=== PATIENT | male | born 1960 | race Caucasian/White ===

== ENCOUNTER → 2023-06-12 | Outpatient (CLI) | payer OTHER ==
--- NOTE | 2023-06-12 10:39 | CA ---
Exercise Stress Test Report Name: Vinod Silva Exam Date: 06/12/2023 08:49 Exam Location: [place] Stress Ht (in): 74 Wt (lb): 199 BSA: 2.17 Ordering Phys: Melchor Horn MD Referring Phys: MELCHOR HORN Technologist: ROSA ALVARADO Age: 62 Gender: M : 1960 Procedure CPT: Indications: R07.9 CHEST PAIN ICD-10 Codes: Patient History: CP, DM, FAMILY HX Medications: UNSURE OF NAMES AND DID NOT BRING LIST (DID'T TAKE ANYTHING THE PAST 24 HOURS) Meds past 24 hrs: Pretest Chest Pain: STRESS TEST Ignacio Protocol Exercise Duration (min:sec): 06:[address] Depressions (mm): Angina Score: Patel Score: Resting HR (bpm): 102 Peak HR (bpm): 135 Resting BP (mmHg): 96 / 64 Peak BP (mmHg): 164 / 62 MPHR: 157 Target HR: 133 % MPHR: 86 METS: 7.1 Total Dose: Peak Dose: Atropine: Double Product: 84496 BP Response: Stress Termination: Reached target heart rate Stress Symptoms: No chest pain or symptoms Stress Summary: ECG ANALYSIS Resting ECG: Normal sinus rhythm normal axis normal at the Stress ECG: Patient exercised on Ignacio protocol for 6 minutes achieving 85% of predicted maximal heart rate without chest pain or diagnostic ST segment depression CONCLUSIONS Average exercise tolerance Negative stress test by EKG criteria Dr. Emanuel Natarajan MD (Electronically Signed) Final Date: 12 June 2023 10:38
== END | disposition home or self-care (01) ==
LOC: RADNMMAIN 08:24
PROVIDERS: ATTEND Family Medicine
DX: R07.9 Chest pain, unspecified (principal)
CPT/HCPCS: 93017

== ENCOUNTER 2023-07-01 09:06 | Inpatient (IN) | payer OTHER ==
[2023-07-01] MEDS: ASPIRIN 81 MG ONE (10:57)
[2023-07-01] MEDS: SODIUM CHLORIDE 0.9% 1,000 ML IV ONE (10:59)
[2023-07-01] MEDS ORDERED: LIDOCAINE 1% INJ 10MG/ML (20 ML MDV) ONE (11:22)
[2023-07-01] MEDS ORDERED: VERAPAMIL 2.5 MG/ML 2 ML AMP ONE (11:22)
[2023-07-01] MEDS ORDERED: fentaNYL (PF) 50 MCG/ML 2 ML AMP ONE (11:33)
[2023-07-01] MEDS ORDERED: HEPARIN SODIUM 1,000 UN/ML (10ML VL) ONE (11:33)
[2023-07-01] MEDS: fentaNYL (PF) 50 MCG/ML 2 ML AMP IVP ONE (11:42)
[2023-07-01] MEDS: MIDAZOLAM 2 MG/2 ML VIAL IVP ONE (11:42)
[2023-07-01] MEDS: VERAPAMIL SYRINGE (5 MG/10 ML) INTRAARTER ONE (11:47)
[2023-07-01] MEDS: HEPARIN SODIUM 1,000 UN/ML (10ML VL) IVP ONE ×3 (11:49→12:09)
[2023-07-01] MEDS ORDERED: TICAGRELOR 90 MG TAB ONE (11:52)
[2023-07-01] MEDS: TICAGRELOR 90 MG TAB PO ONE (11:56)
[2023-07-01] MEDS: IOPAMIDOL-370 100ML BTL INJ ONE ×2 (12:12→12:15)
[2023-07-01] MEDS ORDERED: ZOLPIDEM 5 MG TAB PO PRN (12:20)
[2023-07-01] MEDS ORDERED: MAG HYDROX/AL HYDROX/SIMETH 30 ML CUP PO PRN (12:20)
[2023-07-01] MEDS ORDERED: ATROPINE SULFATE 0.1 MG/ML 10ML SYRINGE IV PRN (12:20)
[2023-07-01] MEDS ORDERED: RX INFO: IV CONTRAST WAS GIVEN 1 EACH MISC MISCELLANE PRN (12:20)
[2023-07-01] MEDS ORDERED: NITROGLYCERIN SL TABS 0.4 MG TAB SUBLINGUAL PRN ×2 (12:20→16:00)
--- NOTE | 2023-07-01 12:34 | P.PRCINT ---
Percutaneous Coronary Int. - Percutaneous Coronary Intervention Percutaneous Coronary Intervention: PROCEDURES PERFORMED: Left heart catheterization, bilateral coronary angiography, ultrasound guided arterial access, PCI mid RCA with a 3.25 x 23mm Xience FREDDIE, post dilated with a 3.75 NC balloon. INDICATION: non-STEMI CONSENT:I have discussed the risks, benefits and alternative therapies for the above-mentioned procedure and for both sedation/analgesia as well as necessary blood product administration, if indicated, as they pertain to this patient. The patient has indicated understanding and acceptance of the risks and procedures discussed. PROCEDURE: After the risks, benefits and alternatives of the above mentioned procedure explained in detail with the patient, informed consent was obtained. Patient was taken to the catheterization lab and prepped and draped in usual fashion. Ultrasound guidance was used to assess for arterial access. 1% lidocaine was used to anesthetize the right radial artery. A 6-Danish sheath was placed in the right radial artery using modified Seldinger technique and ult rasound guidance. Left coronary angiography was performed with a 5-Danish JL 3.5 catheter and right coronary angiography was performed with a 5-Danish FR5 catheter in various views. A 5-Danish FR5 catheter was inserted into the left ventricle and pressure measurements were obtained. decision was made to perform PCI of the RCA. Heparin was given. A 6-Danish AL 0.75 guide was used to engage the RCA. A0.014 BMW wire was advanced to the distal RCA. Predilation was performed with a 2.5 balloon. Next a 3.25 x 18 mm stent was advanced however was too short. Therefore next a 3.25 x 23 mm Xience FREDDIE was advanced and deployed in the mid RCA. This that was postdilated with a 3.75 noncompliant balloon. Final angiograms were performed. Preintervention there is 95% stenosis and ARNIE-3 flow and postintervention there was 0% stenosis and ARNIE-3 flow. The right radial sheath was removed and a TR band was placed with hemostasis achieved. The patient tolerated the procedure well. Patient was transported back to the post catheterization holding area in stable condition. Conscious Sedation: Patient was monitored under the direct supervision of myself for conscious sedation using Versed and fentanyl for a total duration of 34 minutes HEMODYNAMICS: Aorta: 128/72 LV: 124/5, LVEDP 12 SELECTIVE CORONARY ARTERIOGRAPHY: LEFT MAIN: The left main is a large caliber vessel which bifurcates into the LAD and circumflex. There is no significant stenosis. LEFT ANTERIOR DESCENDING CORONARY ARTERY: LAD is a large caliber vessel which wraps around to the apex. There is proximal LAD 10% and mid LAD 30% stenosis. LEFT CIRCUMFLEX CORONARY ARTERY: Left circumflex is a moderate caliber vessel with mild luminal irregularities. RIGHT CORONARY ARTERY: The right coronary artery is a large caliber vessel which gives off a PDA and PLV branch and is the dominant vessel. There is a mid RCA 95% followed by a 30-40% stenosis. FINAL IMPRESSION: 1. CAD as described above including 30% mid LAD, 95% mid RCA stenosis 2. Normal left sided filling pressures 3. Status post PCI mid RCA with a 3.25 x 23mm Xience FREDDIE, post dilated with a 3.75 NC balloon. PLAN: 1. Aggressive risk factor modification per most recent ACC/AHA guidelines. 2. Continued dual anti platelets were aspirin and Brilinta for 12 months
[2023-07-01 12:44] LABS: Glucose,Whole Blood 75 mg/dL (70-110)
[2023-07-01 16:22] LABS: Glucose,Whole Blood 89 mg/dL (70-110)
[2023-07-01] MEDS: SODIUM CHLORIDE 0.9% 1,000 ML in EMPTY BAG 1 BAG IV SCH (17:23)
[2023-07-01 19:59] LABS: Glucose,Whole Blood 120 mg/dL (70-110)
[2023-07-01] MEDS: TICAGRELOR 90 MG TAB PO SCH (20:19)
[2023-07-01] MEDS ORDERED: ATORVASTATIN 40 MG TAB PO SCH (21:00)
[2023-07-01 22:40] VITALS: TEMP 98.1
[2023-07-02 05:18] VITALS: RESP 20
[2023-07-02 06:11] LABS: Glucose,Whole Blood 107 mg/dL (70-110)
[2023-07-02 08:04] LABS: Basophils % (A) 1 %; Eosinophils # (A) 0.1 k/uL (0-0.7); Eosinophils % (A) 2 %; HCT 39.1 % (39.0-53.0); HGB 13.4 gm/dL (13.0-17.5); Lymphocytes % (A) 19 %; MCH 31.3 pg (25.0-35.0); MCHC 34.3 g/dL (31.0-37.0); MCV 91.2 fL (80.0-100.0); Mean Platelet Volume 7.4; Monocytes # (A) 0.4 k/uL (0-1.0); Monocytes % (A) 8 %; Neutrophils # (A) 3.8 k/uL (1.3-7.7); Neutrophils % (A) 69 %; Platelet Count 215 k/uL (150-450); RBC 4.29 m/uL (4.30-5.90); RDW 12.8 % (11.5-15.5); WBC 5.5 k/uL (3.8-10.6)
[2023-07-02 08:22] LABS: African American GFR (CKD) >90 (>60 ml/min/1.73 sqM); Anion Gap 5 mmol/L; Blood Urea Nitrogen 11 mg/dL (9-20); Calcium 8.7 mg/dL (8.4-10.2); Carbon Dioxide 26 mmol/L (22-30); Chloride 107 mmol/L (98-107); Glucose 110 mg/dL (74-99); Non-African American GFR(CKD) 87 (>60 ml/min/1.73 sqM); Potassium 4.1 mmol/L (3.5-5.1); Sodium 138 mmol/L (137-145)
[2023-07-02] MEDS: lisinopriL 20 MG TAB PO SCH (08:57)
[2023-07-02] MEDS: ATORVASTATIN 80 MG TAB PO SCH (08:57)
[2023-07-02] MEDS: GLIMEPIRIDE 2 MG TAB PO SCH (08:58)
[2023-07-02] MEDS: ASPIRIN 81 MG PO SCH (08:58)
[2023-07-02] MEDS ORDERED: ASPIRIN 81 MG PO SCH (09:00)
[2023-07-02 11:40] LABS: Glucose,Whole Blood 88 mg/dL (70-110)
[2023-07-02 12:55] VITALS: BP 127/78; PULSE 90
[2023-07-02 13:40] VITALS: BMI 25.4
[2023-07-02] MEDS: METOPROLOL SUCCINATE (ER) 25 MG TAB.ER.24H PO SCH (16:00)
--- NOTE | 2023-07-02 16:01 | P.PN ---
Subjective Progress Note Date: 07/02/23 History of present illness: This is a 62-year-old male patient initially presented to [facility] with chest pain was concerning for ST elevated myocardial infarction was sent directly over to [facility] and determined to be a non-ST elevated MS. Patient underwent a cardiac catheterization with Dr. Pacheco urgently which revealed CAD with 30% mid LAD, 95% mid RCA stenosis. Normal left-sided filling pressures. Patient underwent PCI of the mid RCA with a FREDDIE post balloon. Patient is seen today on the cardiac stepdown unit. He denies having any chest pain, shortness of breath, lightheadedness and dizziness. Blood pressure 127/78, heart rate 90, pulse ox 100% on room air. Hemoglobin 13.4. BUN 11 creatinine 0.93. Physical examination: Gen: This is a 62-year-old male appears to be in no acute distress VS: reviewed HEENT: Head is atraumatic, normocephalic. Pupils equal, round. Sclerae is anicteric. LUNGS: Clear to auscultation. No wheezes or rhonchi. No intercostal retractions. HEART: Regular rate and rhythm. EXTREMITIES: No pedal edema. No calf tenderness. NEUROLOGICAL: Patient is awake, alert and oriented x3. Assessment: Non-ST elevated myocardial infarction Diabetes mellitus type 2 Hypertension Hyperlipidemia Plan: Continue current cardiac medications: Aspirin 81 mg daily, atorvastatin 80 mg daily, lisinopril 20 mg daily, Toprol XL 25 mg daily, Brilinta 90 mg twice daily and Nitrostat as needed Prescriptions have been sent for his new cardiac medications Patient is cleared for discharge and may follow-up in the office in 1 week. Nurse practitioner note has been reviewed, I agree with documented findings and plan of care. Patient was seen and examined. Objective - Vital Signs Vital signs: Vital Signs Temp 98.1 F 07/01/23 20:00 Pulse 90 07/02/23 12:00 Resp 20 07/02/23 12:00 BP 127/78 07/02/23 12:00 Pulse Ox 100 07/02/23 12:00 FiO2 Intake & Output 07/01/23 07/02/23 07/02/23 18:59 06:59 18:59 Intake Total 518 240 Balance 518 240 Weight 89.811 kg 89.811 kg Intake: IV 400 Oral 118 240 Other: Voiding Method Toilet Toilet # Voids 2 - Labs CBC & Chem 7: 07/02/23 07:47 07/02/23 07:47 Labs: Abnormal Lab Results - Last 24 Hours (Table) 07/01/23 07/02/23 07/02/23 Range/Units 19:58 07:47 07:47 RBC 4.29 L (4.30-5.90) m/uL Glucose 110 H (74-99) mg/dL POC Glucose (mg/dL) 120 H (70-110) mg/dL
--- NOTE | 2023-07-03 04:40 | HP ---
HISTORY AND PHYSICAL CHIEF COMPLAINT: Chest pain and transfer from [facility]. HISTORY OF PRESENT ILLNESS: This gentleman presented to [facility] with chest pain and was found to have an NSTEMI. His pain started about 12 or 16 hours before coming to the emergency room. He was assessed by Cardiology and transferred to this institution for cardiac cath. REVIEW OF SYSTEMS: He had all the classical symptoms of chest pain, discomfort in left arm, shortness of breath, diaphoresis and nausea. The remainder of his history is significant in that he has history of hypertension, diabetes, which he had not been taking care for several years until recently when he had to be admitted and since then he has been responsible with this program and has been on Trulicity, glimepiride, rosuvastatin, lisinopril, and Repatha. ALLERGIES: He is allergic to AKILAH inhibitors and has had trouble with metformin. So far without any problems with the current medications. PHYSICAL EXAMINATION: VITAL SIGNS: Normal. CHEST: Clear. CARDIAC: Normal sinus rhythm. ABDOMEN: Soft and nontender. EXTREMITIES: Normal. IMPRESSION: 1. NSTEMI. 2. Hypertension. 3. Type 2 diabetes. 4. ASCVD. PLAN: 1. Bed rest. 2. Cardiac cath. MMODL / IJN: [id number] /
--- NOTE | 2023-07-03 08:14 | DS ---
DISCHARGE SUMMARY CHIEF COMPLAINT: Chest pain. HISTORY OF PRESENT ILLNESS AND PHYSICAL EXAMINATION: This man's history and physical can be found in the initial workup. LABORATORY STUDIES: While he is in the hospital, he had laboratory studies, details of which can be found in the laboratory section of his chart. COURSE IN HOSPITAL: After admission, he was placed on bed rest and taken to the laborer rags, where he underwent stenting of the RCA. Postoperatively, he had no problems including chest pain and no problems including arrhythmias, chest pain, shortness of breath, etc. He is doing well and it was felt that he could be discharged on the and he will follow up in the office in a week. FINAL DIAGNOSES: 1. Acute myocardial infarction. 2. Coronary artery disease. 3. ASCVD. 4. History of hypertension. 5. History of diabetes. OPERATIONS: Cardiac cath with stenting of the RCA, CONSULTATION: Cardiology. BRISA / QUINTON: [id number] /
== END 2023-07-02 16:05 | disposition home or self-care (01) | DRG 174 ==
LOC: 1SOBS 10:39 → 3SCARD 12:59
PROVIDERS: ADMIT Family Medicine; ATTEND Family Medicine
PROC: 027034Z Dilation of Coronary Artery, One Artery with Drug-eluting Intraluminal Device, Percutaneous Approach (ICD-10-PCS; principal; 2023-07-01 13:45)
PROC: B2111ZZ Fluoroscopy of Multiple Coronary Arteries using Low Osmolar Contrast (ICD-10-PCS; principal; 2023-07-01 13:45)
PROC: 4A023N7 Measurement of Cardiac Sampling and Pressure, Left Heart, Percutaneous Approach (ICD-10-PCS; principal; 2023-07-01 13:45)
DX: I21.4 Non-ST elevation (NSTEMI) myocardial infarction (principal); E11.9 Type 2 diabetes mellitus without complications; I10 Essential (primary) hypertension; I25.10 Atherosclerotic heart disease of native coronary artery without angina pectoris; E78.5 Hyperlipidemia, unspecified; Z88.8 Allergy status to other drugs, medicaments and biological substances
CPT/HCPCS: 76937; 80048; 85025; 93458; 94760